=== PATIENT | male | born 1945 | race African-American/Black ===

== ENCOUNTER → 2016-05-24 | Outpatient (CLI) | payer MEDICARE, OTHER ==
[2016-05-24 15:13] LABS: PROTHROMBIN TIME 22.8 SEC (11.4-15.4)
[2016-05-24 15:17] LABS: ALANINE AMINOTRANSFERASE 33 U/L (21-72); ALKALINE PHOSPHATASE 95 U/L (38-126); ANION GAP 9 (5-19); ASPARTATE AMINO TRANSFERASE 26 U/L (17-59); BILIRUBIN,TOTAL 0.5 mg/dL (0.2-1.3); BLOOD UREA NITROGEN 13 mg/dL (7-20); CALCIUM 9.2 mg/dL (8.4-10.2); CARBON DIOXIDE 29 mmol/L (22-30); CHLORIDE 104 mmol/L (98-107); CREATININE RESULT 0.96 mg/dL (0.52-1.25); GLUCOSE 154 mg/dL (75-110); SODIUM 141.5 mmol/L (137-145); TOTAL PROTEIN 7.4 g/dL (6.3-8.2); URIC ACID 7.5 mg/dL (3.5-8.5)
== END ==
LOC: OD 13:46
PROVIDERS: ATTEND Physician Assistant
DX: M10.9 Gout, unspecified (principal); M19.90 Unspecified osteoarthritis, unspecified site; Z79.01 Long term (current) use of anticoagulants; Z79.899 Other long term (current) drug therapy
CPT/HCPCS: 36415; 80053; 83036; 84550; 85610

== ENCOUNTER → 2016-05-25 | Outpatient (CLI) | payer MEDICARE, OTHER ==
[2016-05-25 10:33] LABS: PROTHROMBIN TIME 21.9 SEC (11.4-15.4)
== END ==
LOC: OD 10:02
PROVIDERS: ATTEND Student in an Organized Health Care Education/Training Program
DX: Z51.81 Encounter for therapeutic drug level monitoring (principal); Z79.01 Long term (current) use of anticoagulants
CPT/HCPCS: 36415; 85610

== ENCOUNTER → 2016-05-26 | Outpatient (CLI) | payer MEDICARE, OTHER ==
[2016-05-26 09:14] LABS: PROTHROMBIN TIME 22.6 SEC (11.4-15.4)
[2016-05-26 09:15] LABS: PARTIAL THROMBOPLASTIN TIME 36.1 SEC (23.5-35.8)
== END ==
LOC: OD 08:24
PROVIDERS: ATTEND Student in an Organized Health Care Education/Training Program
DX: Z79.01 Long term (current) use of anticoagulants (principal)
CPT/HCPCS: 36415; 85610; 85730

== ENCOUNTER → 2016-05-29 | Outpatient (CLI) | payer MEDICARE, OTHER ==
[2016-05-29 12:40] LABS: PROTHROMBIN TIME 16.8 SEC (11.4-15.4)
[2016-05-29 12:41] LABS: PARTIAL THROMBOPLASTIN TIME 30.9 SEC (23.5-35.8)
== END ==
LOC: OD 11:31
PROVIDERS: ATTEND Student in an Organized Health Care Education/Training Program
DX: Z51.81 Encounter for therapeutic drug level monitoring (principal); Z79.01 Long term (current) use of anticoagulants
CPT/HCPCS: 36415; 85610; 85730

== ENCOUNTER → 2017-02-16 | Outpatient (CLI) | payer MEDICARE, OTHER ==
[2017-02-16 14:55] LABS: PROTHROMBIN TIME 16.8 SEC (11.4-15.4)
--- NOTE | 2017-02-16 15:58 | RADIOLOGY REPORT (SQ) ---
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 NUMBER OF VIEWS: Three views. TECHNIQUE: AP and oblique views of the sacroiliac joints. LIMITATIONS: None. FINDINGS: MINERALIZATION: Normal. BONES: No acute fracture or dislocation. There is either degenerative lipping or ankylosis of the lo wer lumbar spine. JOINTS: There is loss of the cortical margins of the SI joints with apparent bony ankylosis bilateral ly. A differential possibility is ankylosing spondylitis. Other etiologies cannot be excluded. Cli nical correlation is recommended. SOFT TISSUES: No soft tissue swelling. No radio-opaque foreign body. OTHER: No other significant finding. 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 A differential possibility is ankylosi ng spondylitis. Other etiologies cannot be excluded. Clinical correlation is recommended. Other fi ndings as noted above TECHNICAL DOCUMENTATION: JOB ID: [id number]- All Rights Reserved
== END ==
LOC: OD 12:43
PROVIDERS: ATTEND Physician Assistant Medical
DX: M43.28 Fusion of spine, sacral and sacrococcygeal region (principal); M46.1 Sacroiliitis, not elsewhere classified; M54.5 Low back pain; Z79.01 Long term (current) use of anticoagulants
CPT/HCPCS: 36415; 72200; 85610; 85730

== ENCOUNTER → 2017-02-19 | Outpatient (CLI) | payer MEDICARE, OTHER ==
[2017-02-19 09:57] LABS: APPEARANCE,URINE CLEAR; BILIRUBIN,URINE NEGATIVE (NEGATIVE); COLOR,URINE YELLOW; GLUCOSE, URINE NEGATIVE (NEGATIVE); KETONES,URINE NEGATIVE (NEGATIVE); LEUKOCYTE ESTERASE,URINE NEGATIVE (NEGATIVE); NITRITE,URINE NEGATIVE (NEGATIVE); PROTEIN,URINE NEGATIVE (NEGATIVE); UROBILINOGEN,URINE NEGATIVE mg/dL (<2.0)
[2017-02-19 10:57] LABS: INTERNATIONAL RATION (INR) 0.96; PROTHROMBIN TIME 13.5 SEC (11.4-15.4)
== END ==
LOC: OD 09:09
PROVIDERS: ATTEND Pain Medicine Interventional Pain Medicine
DX: D68.9 Coagulation defect, unspecified (principal); Z51.81 Encounter for therapeutic drug level monitoring; Z79.01 Long term (current) use of anticoagulants
CPT/HCPCS: 36415; 81001; 85610; 85730

== ENCOUNTER → 2017-03-01 | Outpatient (CLI) | payer MEDICARE, OTHER ==
[2017-03-01 09:21] LABS: PROTHROMBIN TIME 12.9 SEC (11.4-15.4)
[2017-03-01 09:22] LABS: PARTIAL THROMBOPLASTIN TIME 23.8 SEC (23.5-35.8)
== END ==
LOC: OD 07:22
PROVIDERS: ATTEND Physician Assistant
DX: Z51.81 Encounter for therapeutic drug level monitoring (principal); Z79.01 Long term (current) use of anticoagulants
CPT/HCPCS: 36415; 85610; 85730

== ENCOUNTER → 2017-04-02 | Outpatient (CLI) | payer MEDICARE, OTHER ==
[2017-04-02 08:27] LABS: PROTHROMBIN TIME 13.9 SEC (11.4-15.4)
[2017-04-02 08:28] LABS: PARTIAL THROMBOPLASTIN TIME 31.3 SEC (23.5-35.8)
== END ==
LOC: OD 07:41
PROVIDERS: ATTEND Physician Assistant
DX: Z79.01 Long term (current) use of anticoagulants (principal); R79.1 Abnormal coagulation profile
CPT/HCPCS: 36415; 85610; 85730